=== PATIENT | male | born 1985 | race Hispanic/Latino ===

== ENCOUNTER 2016-12-11 22:12 | Emergency (ER) | payer OTHER ==
[2016-12-11 22:26] VITALS: BP 150/98; PULSE 82; RESP 16; O2SAT 96
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
[2016-12-11] MEDS ORDERED: IBUP800T28 PO (23:21)
[2016-12-11 23:38] VITALS: BP 150/98; PULSE 82; RESP 16; O2SAT 96
--- NOTE | 2016-12-12 08:57 | DRSVH ---
PROCEDURE: X-RAY RIGHT HAND, MINIMUM THREE VIEWS ([id number]) INDICATIONS: hand swelling TECHNIQUE: 3 views of the hand(s) acquired. COMPARISON: None. FINDINGS: Bones: Old fracture deformities involving the mid shaft of the fourth and fifth metacarpal bones in t here is a new fracture through the fifth metacarpal head/neck with mild volar angulation. Adjacent s oft tissue swelling. Soft tissues: No suspicious soft tissue calcifications. IMPRESSION: Chronic fractures of fourth and fifth metacarpal midshaft an acute fracture through the f ifth metacarpals. Dictated by: Brandon BLAKE Interpreted: Briana Mejia MD on 12/12/2016 at 8:56 Transcribed by: ANGELO on 12/12/2016 at 8:57 Approved by: Briana Mejia M.D. on 12/12/2016 at 14:53
== END 2016-12-11 23:39 | disposition home or self-care (01) ==
LOC: SED 22:12
DX: S62.398A Other fracture of other metacarpal bone, initial encounter for closed fracture (principal); W22.8XXA Striking against or struck by other objects, initial encounter; Y92.009 Unspecified place in unspecified non-institutional (private) residence as the place of occurrence of the external cause; Y93.83 Activity, rough housing and horseplay; Y99.8 Other external cause status; E11.9 Type 2 diabetes mellitus without complications; M54.9 Dorsalgia, unspecified; G89.29 Other chronic pain; F17.200 Nicotine dependence, unspecified, uncomplicated; Z87.828 Personal history of other (healed) physical injury and trauma; Z88.8 Allergy status to other drugs, medicaments and biological substances